=== PATIENT | male | born 1980 | race Caucasian/White ===

== ENCOUNTER 2022-09-17 19:58 | Emergency (ER) | payer OTHER ==
[~2022-09-17] VITALS: Ht 180.3 cm; Wt 70.3 kg
[2022-09-17 20:12] VITALS: BP 123/86
[2022-09-17] MEDS ORDERED: HYDROCODONE-AC1 EA10 PO (20:56)
== END 2022-09-17 21:18 | disposition home or self-care (01) ==
LOC: ER 19:58
DX: M25.511 Pain in right shoulder (principal)
CPT/HCPCS: 99282